=== PATIENT | female | born 1995 | race Caucasian/White ===

== ENCOUNTER 2019-01-21 10:35 | Outpatient (CLI) | payer MEDICAID | END 2019-01-21 15:27 | disposition home or self-care (01) | LOC: OBT 10:35 → L-D 10:35 → OBT 15:27 | DX: O47.1 False labor at or after 37 completed weeks of gestation (principal); Z3A.39 39 weeks gestation of pregnancy | CPT/HCPCS: 76818 ==

== ENCOUNTER 2019-01-22 02:00 | Inpatient (IN) | payer MEDICAID ==
[2019-01-22 03:30] LABS: RUPTURE FETAL MEMBRANES POSITIVE (NEGATIVE)
[2019-01-22] MEDS ORDERED: BUTORPHANOL 2 MG INJ IV (04:30)
[2019-01-22] MEDS ORDERED: MISOPROSTOL 200 MCG TAB PR ×2 (04:30→09:00)
[2019-01-22] MEDS ORDERED: LIDOCAINE 1% (MPF) 30 ML INJ INJ (04:30)
[2019-01-22] MEDS ORDERED: OXYCODONE/ASPIRIN (4.88/325) TAB PO ×2 (04:30→09:00)
[2019-01-22] MEDS ORDERED: IBUPROFEN 600 MG TAB PO (04:30)
[2019-01-22] MEDS ORDERED: BUTORPHANOL 1 MG INJ IV (04:30)
[2019-01-22] MEDS ORDERED: CARBOPROST 250 MCG INJ IM ×2 (04:30→09:00)
[2019-01-22] MEDS ORDERED: METHYLERGONOVINE 0.2 MG INJ IM ×2 (04:30→09:00)
[2019-01-22] MEDS ORDERED: OXYTOCIN 30 UNITS/LR 500 ML IV ×2 (04:30→09:00)
[2019-01-22] MEDS: LACTATED RINGER'S 1,000 ML IV ×2 (04:51→06:24)
[2019-01-22 04:59] LABS: ADD MAN DIFF? NO
[2019-01-22 05:06] LABS: BASOPHILS % 0.2 % (0.0-2.0); HEMATOCRIT 38.3 % (37.0-47.0); HEMOGLOBIN 13.2 g/dl (12.0-16.0); LYMPHOCYTES # 1.3 10^3/ul (0.8-2.9); LYMPHOCYTES % 12.6 % (15.0-51.0); MEAN CORPUSCULAR HEMOGLOBIN 30.9 pg (29.0-33.0); MEAN CORPUSCULAR HGB CONC 34.5 g/dl (32.0-37.0); MEAN CORPUSCULAR VOLUME 89.7 fl (82.0-101.0); MEAN PLATELET VOLUME 10.2 fl (7.4-10.4); MONOCYTE # 0.5 10^3/ul (0.3-0.9); MONOCYTES % 5.3 % (0.0-11.0); NEUTROPHIL # 8.1 10^3/ul (1.6-7.5); NEUTROPHILS % 81.2 % (39.0-77.0); PLATELET COUNT 260 10^3/UL (140-415); RED BLOOD COUNT 4.27 10^6/ul (4.20-5.40); RED CELL DISTRIBUTION WIDTH 12.3 % (11.5-14.5)
[2019-01-22] MEDS: AMPICILLIN 2 GM/NS (PMX) 100 ML IV (05:06)
[2019-01-22 05:25] LABS: INR 0.79; PROTIME 11.1 Sec (11.9-14.9); PT RATIO 0.9
[2019-01-22 05:26] LABS: PARTIAL THROMBOPLASTIN TIME 25.7 Sec (23.0-35.0)
[2019-01-22] MEDS ORDERED: KETOROLAC 30 MG INJ IV ×2 (05:30→06:00)
[2019-01-22] MEDS ORDERED: ZOLPIDEM 5 MG TAB PO ×2 (05:30→06:00)
[2019-01-22] MEDS ORDERED: DIPHENHYDRAMINE 50 MG INJ IV ×2 (05:30→06:00)
[2019-01-22] MEDS ORDERED: HYDROmorphONE 0.5 MG/0.5 ML SYG IV ×4 (05:30→06:00)
[2019-01-22] MEDS ORDERED: NALOXONE (0.4 MG/ML) INJ IV ×2 (05:30→06:00)
[2019-01-22] MEDS ORDERED: ONDANSETRON 4 MG INJ IV ×3 (05:30→09:00)
[2019-01-22] MEDS ORDERED: FENTAnyl 2MCG/ML-ROPIV 0.2% 100 ML BAG EPI ×2 (05:30→06:00)
[2019-01-22 05:56] LABS: HEPATITIS B SURFACE ANTIGEN NEGATIVE (NEGATIVE)
[2019-01-22] MEDS ORDERED: ROPIVACAINE 0.5 % 30 ML VIAL (07:00)
[2019-01-22] MEDS ORDERED: AMPICILLIN 1 GM/NS (PMX) 50 ML IV (08:30)
[2019-01-22] MEDS: OXYTOCIN 30 UNITS/LR 500 ML IV ×3 (08:58→12:32)
[2019-01-22] MEDS ORDERED: NACL 0.9% 3 ML SYG IV (09:00)
[2019-01-22] MEDS ORDERED: ACETAMINOPHEN 325 MG TAB PO (09:00)
[2019-01-22] MEDS: SENNA/DOCUSATE NA (8.6MG/50MG) TAB PO ×2 (09:00→21:22)
[2019-01-22 16:42] LABS: RAPID PLASMA REAGIN NONREACTIVE (NR)
[2019-01-22] MEDS: WITCH HAZEL/GLYCERIN PAD PR (17:30)
[2019-01-22] MEDS: OXYCODONE/ASPIRIN (4.88/325) TAB PO (17:30)
[2019-01-22] MEDS: LANOLIN HPA 1 PKT TOP (17:30)
[2019-01-22] MEDS: IBUPROFEN 600 MG TAB PO ×2 (18:00→23:41)
[2019-01-23] MEDS: IBUPROFEN 600 MG TAB PO ×4 (05:40→23:27)
[2019-01-23 06:48] LABS: HEMATOCRIT 30.5 % (37.0-47.0); HEMOGLOBIN 10.3 g/dl (12.0-16.0)
[2019-01-23] MEDS: SENNA/DOCUSATE NA (8.6MG/50MG) TAB PO ×2 (09:28→21:00)
[2019-01-23] MEDS: INFLUENZA VIRUS VACCINE 0.5 ML (DISPENSING) IM* (10:56)
[2019-01-24] MEDS: IBUPROFEN 600 MG TAB PO ×2 (05:37→11:28)
[2019-01-24] MEDS: SENNA/DOCUSATE NA (8.6MG/50MG) TAB PO (09:01)
[2019-01-24] MEDS: DIPHTH/TET/ACEL PERTUSS (ADULT) 0.5 ML VIAL IM* (11:29)
== END 2019-01-24 16:18 | disposition home or self-care (01) | DRG 807 ==
LOC: OBT 02:00 → L-D 02:00 → OBT 03:40 → L-D 03:40 → PP1 10:32
PROVIDERS: Obstetrics & Gynecology
PROC: 10E0XZZ Delivery of Products of Conception, External Approach (ICD-10-PCS; principal; 2019-01-22)
PROC: 0HQ9XZZ Repair Perineum Skin, External Approach (ICD-10-PCS; 2019-01-22)
DX: O70.0 First degree perineal laceration during delivery (principal); Z37.0 Single live birth; Z3A.39 39 weeks gestation of pregnancy; Z23 Encounter for immunization
CPT/HCPCS: 76815; 84112; 85014; 85018; 85025; 85610; 85730; 86592; 86850; 86900; 86901; 87340; 90686; 90715; 99464